=== PATIENT | female | born 1970 | race American Indian/Alaskan Native ===

== ENCOUNTER 2017-03-26 19:09 | Emergency (ER) | payer MEDICAID ==
--- NOTE | 2017-03-26 20:39 | Emergency Department Report ---
<BARBARA SAHU - Last Filed: 03/26/17 22:51> ED Fall HPI - General Chief Complaint: Fall Stated Complaint: FALL Time Seen by Provider: 03/26/17 19:48 Source: patient, family Mode of arrival: Ambulatory Limitations: No Limitations - History of Present Illness Initial Comments: Patient reports that she fell on escalator yesterday. She is complaining of left breast pain with bruising and redness. She is also complaining of left and right shoulder pain and reports bruising to her right arm. She reports pain 10 out of 10 to her breast and her shoulders. Denies any hitting head injury or loss of consciousness. Described pain as throbbing . No over-the- counter medication taken and patient said that she is up-to-date on her tetanus vaccine. MD Complaint: fall Onset/Timin -: days(s) Fall From: standing (while on the escalator) When Fall Occurred: # days [employer] (1 day) Fall Witnessed: yes, by bystander Place Fall Occurred: street Loss of Consciousness: none Prolonged Down Time?: no Symptoms Prior to Fall: none Location: chest, other (left breast) Location - Extremities: Left: Shoulder (painful), Right: Shoulder, Arm (pain and bruising) Severity: severe Severity scale (0 -10): 10 Quality: other (throbbing) Context: tripped/slipped Associated Symptoms: denies: headache, neck pain, numbness, weakness, chest paint, shortness of breath, abdominal pain, hematuria, unable to walk, lightheaded, vertigo, confusion - Related Data Previous Rx's Medication Instructions Recorded Last Taken Type Cephalexin [Keflex] 500 mg PO Q8HR #21 cap 03/26/17 Unknown Rx HYDROcodone/APAP 7.5-325 [[place] 1 each PO Q6HR PRN #12 tablet 03/26/17 Unknown Rx 7.5/325] Ibuprofen [Motrin] 600 mg PO Q8H PRN #15 tablet 03/26/17 Unknown Rx Allergies Allergy/AdvReac Type Severity Reaction Status Date / Time No Known Allergies Allergy Verified 03/26/17 19:14 ED Review of Systems ROS: Stated complaint: FALL Other details as noted in HPI Comment: All other systems reviewed and negative Constitutional: no symptoms reported Eyes: denies: vision change ENT: denies: epistaxis Respiratory: no symptoms reported Cardiovascular: denies: chest pain, palpitations, dyspnea on exertion, edema, syncope Gastrointestinal: denies: abdominal pain, nausea, vomiting Genitourinary: denies: urgency, dysuria, hematuria, discharge Musculoskeletal: arthralgia (both shoulders), myalgia Skin: rash, change in color, other (present to right arm and left breast) Neurological: denies: headache, weakness, numbness, paresthesias, confusion, abnormal gait, vertigo ED Past Medical Hx - Past Medical History Previous Medical History?: No - Surgical History Past Surgical History?: Yes Additional Surgical History: x2 - Family History Family history: hypertension - Social History Smoking Status: Never Smoker Substance Use Type: None, Alcohol - Medications Home Medications: Home Medications Medication Instructions Recorded Confirmed Last Taken Type Cephalexin [Keflex] 500 mg PO Q8HR #21 cap 03/26/17 Unknown Rx HYDROcodone/APAP 7.5-325 [[place] 1 each PO Q6HR PRN #12 tablet 03/26/17 Unknown Rx 7.5/325] Ibuprofen [Motrin] 600 mg PO Q8H PRN #15 tablet 03/26/17 Unknown Rx ED Physical Exam - General Limitations: No Limitations General appearance: alert, in no apparent distress - Head Head exam: Present: atraumatic, normocephalic, normal inspection - Expanded Head Exam Expanded Head exam: Absent: laceration, abrasion, contusion, hematoma, racoon eyes, almendarez's sign, general tenderness, tenderness of temporal artery, CSF rhinorrhea , CSF otorrhea - Eye Eye exam: Present: normal appearance, PERRL, EOMI. Absent: periorbital swelling , periorbital tenderness Pupils: Present: normal accommodation - Neck Neck exam: Present: normal inspection, other (no C-spine tenderness). Absent: tenderness, meningismus, full ROM, lymphadenopathy - Expanded Neck Exam Expanded Neck exam: Absent: tenderness, midline deformity, anterior neck swelling, tracheal deviation - Respiratory Respiratory exam: Present: normal lung sounds bilaterally, chest wall tenderness (tenderness to palpate the left breast.). Absent: respiratory distress, wheezes, rales, rhonchi, stridor, accessory muscle use, decreased breath sounds, prolonged expiratory - Cardiovascular Cardiovascular Exam: Present: normal rhythm, tachycardia, normal heart sounds. Absent: systolic murmur, diastolic murmur - GI/Abdominal GI/Abdominal exam: Present: soft, normal bowel sounds, hernia (positive hernia which is chronic). Absent: distended, tenderness, guarding, rebound, rigid, organomegaly, mass, bruit, pulsatile mass - Extremities Exam Extremities exam: Present: full ROM, normal capillary refill, other (no clubbing , cyanosis or edema. +2 pulses in all extremities. No neurovascular compromise ). Absent: normal inspection, tenderness, pedal edema, joint swelling, calf tenderness - Expanded Upper Extremity Exam Right General: Present: abrasion. Absent: normal inspection, laceration, nail injury (#), foreign body, amputation, avulsion Shoulder Exam: Present: normal inspection, full ROM (active range of motion to shoulder but patient reports that pain with movement.), tenderness, tenderness over AC joint. Absent: swelling, abrasion, laceration, ecchymosis, deformity, crepidus, dislocation, erythema Upper Arm exam: Present: full ROM, abrasion (patient noted to upper arm.). Absent: normal inspection, tenderness, swelling, laceration, ecchymosis, deformity, crepidus, dislocation, erythema Elbow exam: Present: normal inspection, full ROM. Absent: tenderness, swelling , abrasion, laceration, ecchymosis, deformity, crepidus, dislocation, erythema, effusion, pain w/ pronation/supination, tenderness over radial head Forearm Wrist exam: Present: normal inspection, full ROM. Absent: tenderness, swelling, abrasion, laceration, ecchymosis, deformity, crepidus, dislocation, erythema, tenderness over anatomical snuff box, pain with axial thumb loading Hand Wrist exam: Present: normal inspection, full ROM. Absent: tenderness, swelling, abrasion, laceration, ecchymosis, deformity, crepidus, dislocation, erythema, amputation, nail avulsion, subungual hematoma Neuro motor exam: Present: wrist extension intact, thumb opposition intact, thumb IP flexion intact, thumb adduction intact, fingers 2-5 abduction intact Neurosensory exam: Present: 2-point discrimination, radial nerve intact, ulnar nerve intact, median nerve intact Vascular: Present: normal capillary refill, radial pulse, brachial pulse, ulnar pulse. Absent: vascular compromise, Pallo, pulse deficit radial art, pulse deficit ulnar art, pulse deficit brachial art Left General: Present: normal inspection. Absent: laceration, abrasion, nail injury (#), foreign body, amputation, avulsion Shoulder Exam: Present: normal inspection, full ROM (patient with active range of motion to left shoulder but reports pain with movement), tenderness, tenderness over AC joint. Absent: swelling, abrasion, laceration, ecchymosis, deformity, crepidus, dislocation, erythema Upper Arm exam: Present: normal inspection, full ROM. Absent: tenderness, swelling, abrasion, laceration, ecchymosis, deformity, crepidus, dislocation, erythema Elbow exam: Present: normal inspection, full ROM. Absent: tenderness, swelling , abrasion, laceration, ecchymosis, deformity, crepidus, dislocation, erythema, effusion, pain w/ pronation/supination, tenderness over radial head Forearm Wrist exam: Present: normal inspection, full ROM. Absent: tenderness, swelling, abrasion, laceration, ecchymosis, deformity, crepidus, dislocation, erythema, tenderness over anatomical snuff box, pain with axial thumb loading Hand Wrist exam: Present: normal inspection, full ROM. Absent: tenderness, swelling, abrasion, laceration, ecchymosis, deformity, crepidus, dislocation, erythema, amputation, nail avulsion, subungual hematoma Neuro motor exam: Present: wrist extension intact, thumb opposition intact, thumb IP flexion intact, thumb adduction intact, fingers 2-5 abduction intact Neurosensory exam: Present: 2-point discrimination, radial nerve intact, ulnar nerve intact, median nerve intact Vascular: Present: normal capillary refill, radial pulse, brachial pulse, ulnar pulse. Absent: vascular compromise, Pallo, pulse deficit radial art, pulse deficit ulnar art, pulse deficit brachial art - Back Exam Back exam: Present: normal inspection, full ROM, other (H&H to ambulate without any difficulties.). Absent: tenderness, CVA tenderness (R), CVA tenderness (L) , muscle spasm, paraspinal tenderness, vertebral tenderness, rash noted - Expanded Back Exam Expanded Back exam: Absent: saddle anesthesia Back exam: Negative Straight Leg Raising: Left, Right - Neurological Exam Neurological exam: Present: alert, oriented X3, normal gait, reflexes normal, other (no focal neurological deficit). Absent: motor sensory deficit - Psychiatric Psychiatric exam: Present: normal affect, normal mood - Skin Skin exam: Present: warm, dry, erythema, abrasion (right arm), ecchymosis (left breast) - Expanded Skin Exam Expanded Type of lesion: Present: other (ecchymosis) Distribution of rash: chest (left breast) Description of rash: Present: tenderness, erythematous, swelling, other ( ecchymosis) - Other Other exam information: Breasts: Patient with ecchymotic, erythema, swelling to left breast. Tender to palpate and positive induration suggestive of a hematoma. No abrasions or lacerations noted. ED Course Vital Signs 03/26/17 03/26/17 19:14 23:56 Temperature 98.9 F 98.0 F Pulse Rate 106 H 83 Respiratory 18 18 Rate Blood Pressure 145/94 Blood Pressure 139/73 [Right] O2 Sat by Pulse 97 99 Oximetry - Reevaluation(s) Reevaluation #1: 03/26/17 22:30 Patient given Flexeril 10 mg by mouth and Percocet 5/325 2 pills in emergency room. Up and her evaluation, she said her pain is better. Still awaiting results on ultrasound. Bilateral rib x-ray revealed no acute findings. X-ray of both shoulders suspicious for AC abnormality and radiologist recommends CT scan here for patient to have CT scan of both her shoulders. Reevaluation #2: 03/26/17 23:06 Patient is stable. Still awaiting ultrasound results. Still awaiting CT scan of both shoulders. Updated on plans and her pain is controlled. ED Medical Decision Making - Radiology Data Radiology results: report reviewed X-ray bilateral rib series reveal no acute abnormalities. X-ray of bilateral shoulders reveal possible right acromial fracture. Downsloping right achromia and with loss of right acromial humeral space and soft tissue swelling asymmetric with the left. Recommend CT scan shoulder for further characterization. CT scan was ordered. Possible left calcific tendinitis. No before meals separation. No dislocation identified. CT scan on right shoulder reveals no acute fracture dislocation. Proximal humerus is intact. 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 CT scan of left shoulder reveal RS achromia [place] with degenerative changes at the AC Joint. Cystic type degenerative changes of the humeral head may indicate underlying rotator cuff pathology no acute fracture or dislocation identified - Medical Decision Making ED course: Patient presents to emergency room today after falling in accidentally from escalator yesterday. She is complaining of pain and bruising to her left breast and pain to both shoulders and chest area and abrasion to her right upper arm. Patient was given Percocet 5/325 2 times in emergency room along with Flexeril 10 mg by mouth. She voiced relief of pain upon reevaluation. Bilateral rib series revealed no acute findings. X-ray of both shoulders suspicious for abnormalities and radiologist recommend CT scan which was ordered. Patient with hematoma to left breast and ultrasound of left breast done and awaiting results. Patient reports that her tetanus shot is up- to-date. She has abrasion to her right arm Critical care attestation.: If time is entered above; I have spent that time in minutes in the direct care of this critically ill patient, excluding procedure time. ED Disposition Clinical Impression: Multiple abrasions, Breast pain Fall Qualifiers: Encounter type: initial encounter Qualified Code(s): W19.XXXA - Unspecified fall, initial encounter Shoulder strain Qualifiers: Encounter type: initial encounter Laterality: unspecified laterality Qualified Code(s): S46.919A - Strain of unspecified muscle, fascia and tendon at shoulder and upper arm level, unspecified arm, initial encounter Disposition: - TO HOME OR SELFCARE Is pt being admited?: No Does the pt Need Aspirin: No Condition: Stable Instructions: Osteoarthritis (ED), Contusion in Adults (ED), Abrasion (ED), Musculoskeletal Pain (ED), Arthralgia (ED), Fall Prevention (ED), Chest Pain (ED ) Additional Instructions: Please follow up with the primary care physician in 2 days and if he do not have a primary care physician please follow up at [facility] regarding in breast contusion, right arm abrasion. Follow up with orthopedic doctor as recommended for bilateral shoulder pain after falling. Your CT scan of shoulders is showing some abnormalities and radiologist recommended that he follow up with orthopedic doctor for MRI due to possible rotator cuff disease. Please do not drive or operate heavy machinery while taking and [place] as this medication causes drowsiness Please keep affected area clean and dry. Antibiotic as prescribed for abrasion. Apply cool compresses the left breast to relieve pain. If you notice that contusion to left breast is increasing in size, redness, pain and contusion is not decreasing you need to return to the emergency room CAT Prescriptions: Cephalexin [Keflex] 500 mg PO Q8HR #21 cap HYDROcodone/APAP 7.5-325 [[place] 7.5/325] 1 each PO Q6HR PRN #12 tablet PRN Reason: Pain Ibuprofen [Motrin] 600 mg PO Q8H PRN #15 tablet PRN Reason: Pain Referrals: [facility] [Outside] - 2-3 Days PRIMARY MD EMMA [Primary Care Provider] - 03/28/17 LEANNE WEATHERS MD [Staff Physician] - 2-3 Days LUÍS CUI MD [Staff Physician] - 3-5 Days Forms: Accompanied Note, Work/School Release Form(ED) <RANDY COVARRUBIAS - Last Filed: 03/27/17 00:14> ED Medical Decision Making - Radiology Data Radiology results: report reviewed, image reviewed US Breast Benign -appearing , no suspicious solid abnormality is seen, no specific evidence of abscess, subcutaneous cyst versus hematomas 1.85x1.54 cm - Medical Decision Making Us negative for solid mass or malignancy patient will follow up with [employer] as directed and primary care doctor with in 3 days pt verbalized agreement and understanding of discharge plan. pt for dc to self at this time. ED Disposition Time of Disposition: 00:13
[2017-03-26] MEDS ORDERED: FLEXERIL PO ONE (20:43)
[2017-03-26] MEDS ORDERED: PERCOCET 5/325 PO ONE (20:43)
--- NOTE | 2017-03-26 21:39 | XRay Report ---
FINAL REPORT EXAM: XR RIBS BILAT W/PA CHEST 4+V HISTORY: fall with delia rib pain TECHNIQUE: Bilateral ribs 6 views with frontal view of the chest PRIORS: None. FINDINGS: No rib fracture identified. No bony lesions seen. No evidence of pneumothorax or pleural effusion within the chest. No acute pulmonary infiltrate seen. Otherwise no acute findings. IMPRESSION: Negative bilateral rib series
--- NOTE | 2017-03-26 21:41 | XRay Report ---
FINAL REPORT EXAM: XR SHOULDER BILAT 2+V HISTORY: Fall with delia shoulder pain TECHNIQUE: Three views of the bilateral shoulders FINDINGS: The right lateral film of the right shoulder is motion degraded. There is no evidence for dislocation or AC separation of either shoulder. There is downsloping acromion and mild acromioclavicular hypertrophy right shoulder. There is mild irregularity of the acromion. The acromial humeral space is much narrower on the right than the left. There is calcification in the expected location of the left supraspinatus which may suggest calcific tendinitis. No clavicular fracture is identified. The left lateral film is under exposed and not centered. It is also nondiagnostic. IMPRESSION: Limited lateral images bilaterally. Possible right acromial fracture. Downsloping right acromion with loss of the right acromial humeral space and soft tissue swelling asymmetric with the left. Recommend CT right shoulder for further characterization No dislocation identified. No AC separation. Possible left calcific tendinitis.
[2017-03-26] MEDS ORDERED: TRIPLE ANTIBIOTIC TP ONE (23:10)
--- NOTE | 2017-03-26 23:24 | Cat Scan Report ---
FINAL REPORT EXAM: CT UPPER EXTREM LT WO CON HISTORY: fall with shoulder injury. 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 No acute fracture or dislocation is identified. Adjacent visualized bony and soft tissue structures demonstrate no acute change. IMPRESSION: Os acromiale with degenerative changes at the AC joint Cystic type degenerative changes of the humeral head may indicate underlying rotator cuff pathology. No acute fracture or dislocation identified
--- NOTE | 2017-03-26 23:27 | Cat Scan Report ---
FINAL REPORT EXAM: CT UPPER EXTREM RT WO CON HISTORY: fall with shoulder injury. Radiology recommends CT TECHNIQUE: CT of the right shoulder with multiplanar reconstructions PRIORS: None. 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 Cystic changes with joint space narrowing at the AC joint noted. No acute fracture or dislocation identified. Proximal humerus is intact. Adjacent bony and soft tissue structures are unremarkable. IMPRESSION: Congenital ununited os acromiale. No acute fracture identified
--- NOTE | 2017-03-26 23:58 | Ultrasound Report ---
FINAL REPORT PROCEDURE: US BREAST LT COMPLETE TECHNIQUE: Real-time sonography in multiple planes of the LEFT breasts, including all four quadrants and the retroareolar regions, was performed with image documentation. HISTORY: Fall with bruisin and swelling to left breast COMPARISON: No prior studies are available for comparison. FINDINGS: LEFT breast: Architecture and echotexture is within normal limits. At the 12:00 position 5 centimeters from the areola there is a complex cystic subcutaneous mass measuring 1.85 x 1.54 by 1.9 centimeters. This could be a subcutaneous hematoma with adjacent cyst. There is no solid abnormality suspicious for malignancy. At the 1 o'clock position approximately 5 centimeters from the areola there are 4 discrete hypoechoic nodules which be a combination of cysts, fibroadenomas or lymph nodes. Largest of these measures approximately 1.14 centimeters in diameter. In the 1 o'clock position approximately 7 centimeters from the area hahn there is a 2.1 by 1.3 centimeter hypoechoic lesion which could also be a hematoma or complex cyst. IMPRESSION: Benign-appearing lesions as described detail above. No suspicious solid abnormality is seen. There is no specific evidence of abscess. Clinical follow-up suggested as needed.
[2017-03-26 23:59] VITALS: BP 139/73
== END 2017-03-27 00:20 | disposition home or self-care (01) ==
LOC: ED 19:09
DX: S46.911A Strain of unspecified muscle, fascia and tendon at shoulder and upper arm level, right arm, initial encounter (principal); S46.912A Strain of unspecified muscle, fascia and tendon at shoulder and upper arm level, left arm, initial encounter; N64.4 Mastodynia; W10.0XXA Fall (on)(from) escalator, initial encounter; Y93.89 Activity, other specified; Y92.89 Other specified places as the place of occurrence of the external cause; Y99.8 Other external cause status
CPT/HCPCS: 71111; A6250